=== PATIENT | male | born 1970 ===

== ENCOUNTER 2023-06-25 06:35 | Day surgery (SDC) | payer OTHER | END 2023-06-25 10:55 | disposition home or self-care (01) | LOC: AMB-ENDOS 06:35 | PROVIDERS: ATTEND Colon & Rectal Surgery | DX: D12.5 Benign neoplasm of sigmoid colon (principal); Z86.010 Personal history of colon polyps; K57.30 Diverticulosis of large intestine without perforation or abscess without bleeding; K64.1 Second degree hemorrhoids ==